=== PATIENT | female | born 1995 | race African-American/Black ===

== ENCOUNTER 2021-12-09 14:55 | Emergency (ER) | payer MEDICAID, OTHER ==
[~2021-12-09] VITALS: Ht 177.8 cm; Wt 127.0 kg
[2021-12-09 18:30] VITALS: BP 147/79
== END 2021-12-09 22:13 | disposition home or self-care (01) ==
LOC: ER 15:00
DX: S06.0X0A Concussion without loss of consciousness, initial encounter (principal); S13.4XXA Sprain of ligaments of cervical spine, initial encounter; S90.32XA Contusion of left foot, initial encounter; V89.2XXA Person injured in unspecified motor-vehicle accident, traffic, initial encounter; Y93.89 Activity, other specified; Y92.89 Other specified places as the place of occurrence of the external cause; Y99.8 Other external cause status
CPT/HCPCS: 70450; 72100; 72125; 73630

== ENCOUNTER 2021-12-16 13:38 | Emergency (ER) | payer MEDICAID, OTHER ==
[~2021-12-16] VITALS: Ht 177.8 cm; Wt 127.0 kg
[2021-12-16 18:21] VITALS: BP 128/87
== END 2021-12-16 18:49 | disposition home or self-care (01) ==
LOC: ER 13:38
DX: S29.012A Strain of muscle and tendon of back wall of thorax, initial encounter (principal); R51.9 Headache, unspecified; V49.9XXA Car occupant (driver) (passenger) injured in unspecified traffic accident, initial encounter; Y93.89 Activity, other specified; Y92.89 Other specified places as the place of occurrence of the external cause; Y99.8 Other external cause status

== ENCOUNTER 2022-11-26 18:07 | Emergency (ER) | payer MEDICAID ==
[~2022-11-26] VITALS: Ht 175.3 cm; Wt 127.0 kg
[2022-11-26] MEDS ORDERED: methylPREDNISolone SOD SUCC 125 MG/2 ML VL IM ONE (20:15)
[2022-11-26] MEDS ORDERED: KETOROLAC TROMETH 30 MG/ML 1ML VIAL IM ONE (20:15)
[2022-11-26] MEDS ORDERED: CYCL-837 PO (20:51)
[2022-11-26 22:02] VITALS: BP 153/88
== END 2022-11-26 22:04 | disposition home or self-care (01) ==
LOC: ER 18:07
DX: S13.9XXA Sprain of joints and ligaments of unspecified parts of neck, initial encounter (principal); V49.9XXA Car occupant (driver) (passenger) injured in unspecified traffic accident, initial encounter; Y93.89 Activity, other specified; Y92.89 Other specified places as the place of occurrence of the external cause; Y99.8 Other external cause status
CPT/HCPCS: 96372; 99284; J1885; J2930

== ENCOUNTER 2022-11-28 02:22 | Emergency (ER) | payer MEDICAID ==
[~2022-11-28 02:22] MED LIST: CYCL-837 PO
== END 2022-11-28 04:35 | disposition left against medical advice (07) ==
LOC: ER 02:22
DX: M54.2 Cervicalgia (principal); Z53.21 Procedure and treatment not carried out due to patient leaving prior to being seen by health care provider

== ENCOUNTER 2023-11-09 14:04 | Emergency (ER) | payer MEDICAID, OTHER ==
[~2023-11-09] VITALS: Ht 175.3 cm; Wt 124.2 kg
[2023-11-09 14:20] VITALS: BP 138/79; PULSE 128; RESP 18; O2SAT 100
== END 2023-11-09 21:07 | disposition left against medical advice (07) ==
LOC: ER 14:04
DX: M25.562 Pain in left knee (principal); Z53.21 Procedure and treatment not carried out due to patient leaving prior to being seen by health care provider; X50.0XXA Overexertion from strenuous movement or load, initial encounter; Y93.89 Activity, other specified; Y92.89 Other specified places as the place of occurrence of the external cause; Y99.8 Other external cause status